=== PATIENT | male | born 1950 | race Caucasian/White ===

== ENCOUNTER 2018-05-25 06:17 | Day surgery (SDC) | payer MEDICARE ==
[2018-05-25] VITALS (8 sets, daily range): BP systolic 115–122; BP diastolic 60–71
[~2018-05-25] VITALS: Ht 182.9 cm; Wt 82.0 kg
[~2018-05-25 06:17] MED LIST: BACDS PO; CLINDAmcin 900mg/NS 50ml IVPB 50 ML IV ONE; HYDR-4353 PO; THYR120T14 PO; famotidine 20mg tablet PO ONE; ringers solution, lacted 1,000 ML IV SCH
[2018-05-25] MEDS ORDERED: ROPIVAcaine 0.5% (5mg/ml) 30ml vial ONE (07:47)
[2018-05-25 07:58] LABS: BASOPHILS % (AUTO) 0.2 % (0-1); EOSINOPHILS # (AUTO) 0.1 X10'3 (0-0.9); EOSINOPHILS % (AUTO) 1.5 % (0-6); HEMATOCRIT 42.7 % (42.0-52.0); HEMOGLOBIN 14.7 g/dl (14.0-17.9); LYMPHOCYTES # (AUTO) 0.4 X10'3 (1.1-4.8); LYMPHOCYTES % (AUTO) 5.4 % (21-51); MEAN CORPUSCULAR HEMOGLOBIN 28.8 PG (27.0-31.0); MEAN CORPUSCULAR HGB CONC 34.3 g/dL (33.0-36.5); MEAN CORPUSCULAR VOLUME 83.9 FL (78-98); MEAN PLATELET VOLUME 9.5 FL (7.4-10.4); MONOCYTES # (AUTO) 0.6 X10'3 (0-0.9); MONOCYTES % (AUTO) 8.4 % (2-12); NEUTROPHILS # (AUTO) 6.4 X10'3 (1.8-7.7); NEUTROPHILS % (AUTO) 84.5 % (42-75); PLATELET COUNT 155 X10'3 (140-440); RED BLOOD COUNT 5.09 X10'6 (4.70-6.10); RED CELL DISTRIBUTION WIDTH 13.5 % (11.5-14.5); WHITE BLOOD COUNT 7.5 X10'3 (4.5-11.0)
[2018-05-25 08:07] LABS: ALANINE AMINOTRANSFERASE 16 U/L (12-78); ALBUMIN 3.9 G/DL (3.4-5.0); ALBUMIN/GLOBULIN RATIO 1.1 (1.1-1.5); ALKALINE PHOSPHATASE 105 IU/L (46-116); ANION GAP 20 (8-16); ASPARTATE AMINO TRANSFERASE 20 U/L (10-37); BILIRUBIN,TOTAL 0.6 MG/DL (0.1-1.0); BLOOD UREA NITROGEN 29 MG/DL (7-18); BUN/CREATININE RATIO 23.8 (5.4-32.0); CALCIUM 9.7 MG/DL (8.5-10.1); CHLORIDE 91 MMOL/L (99-107); CREATININE 1.22 MG/DL (0.60-1.10); GLUCOSE 96 MG/DL (70-104); POTASSIUM 4.9 MMOL/L (3.5-5.1); SODIUM 128 MMOL/L (135-145); TOTAL CARBON DIOXIDE 17.2 MMOL/L (24-32); TOTAL PROTEIN 7.6 G/DL (6.4-8.2); eGFR 59 ML/MIN
[2018-05-25] MEDS ORDERED: TRAM50TA2 PO ×4 (08:15→17:58)
--- NOTE | 2018-05-25 11:07 | NUR ---
SURGERY DELAYED R/T OR AVAILABILITY. Q1 CHECKS HAVE FOUND PATIENT TO APPEAR TO BE SLEEPING, NO SIGNS OF DISTRESS OR DISCOMFORT. GLORIA AT BEDSIDE FOR PATIENT SUPPORT. UNABLE TO OBTAIN UA DUE TO PATIENTS INABILITY TO VOID AT THIS TIME
[2018-05-25] MEDS ORDERED: traMADol 50MG tablet PO ONE (11:20)
--- NOTE | 2018-05-25 11:40 | NUR ---
UA OBTAINED PRIOR TO SURGERY
[2018-05-25] MEDS ORDERED: fentaNYL/PF 50MCG/1 ML 2ML syringe ONE (11:55)
[2018-05-25] MEDS ORDERED: MIDAZolam 5mg/5ml vial ONE (12:05)
[2018-05-25] MEDS ORDERED: LIDOcaine 1%/PF 5ML 10 MG/ML VIAL ONE (12:12)
[2018-05-25] MEDS ORDERED: propofol inj 20 ML IV ONE (12:12)
[2018-05-25] MEDS ORDERED: ringers solution, lacted 1,000 ML IV SCH (12:37)
[2018-05-25] MEDS ORDERED: ondansetron/PF 4mg/2ml inj IV PRN (12:40)
[2018-05-25] MEDS ORDERED: hydrALAZINE 20mg/ml inj. IV PRN (12:40)
[2018-05-25] MEDS ORDERED: fentaNYL/PF 50MCG/1 ML 2ML syringe IV PRN ×2 (12:40)
[2018-05-25] MEDS ORDERED: labetalol 20mg/4ml (5mg/ml) syringe IV PRN (12:40)
[2018-05-25] MEDS ORDERED: morphine 4 MG/ML inj SYRINge IV PRN ×2 (12:40)
--- NOTE | 2018-05-25 13:25 | NUR ---
Received from OR via bed, accompanied by Anesthesiologist. Report received. Initial physical assessment done and recorded.
--- NOTE | 2018-05-25 14:25 | NUR ---
Discharge criteria met, report to receiving floor. Transferred to room in stable condition.
--- NOTE | 2018-05-25 18:47 | NUR ---
Discharge criteria relaye to charge nurse Morena BALBUENA. Order is under misc. nursing order as well. Blanca kitty requested to walk pt. and shower/sitz at this moment. Discharge paperwork and medications with pt. in room. 435 found in bladder during bladder scan. Charge nurse aware/report given.
--- NOTE | 2018-05-25 20:20 | NUR ---
smiley catheter inserted per Dr Ballesteros orders, indwelling, will be removed by MD in a few days. Patient to make appointment. Teaching done r/t smiley care, leg bag, sitz bath, dressings, and f/u w/ dr Ballesteros
--- NOTE | 2018-05-25 20:20 | NUR ---
discharged per W/C to front doors and assisted into private care. Patent alert, walking w/o assistance, in no pain at this time, smiley catheter patient draining clear urine. Seat belt secured and door securely closed. a stable post op day. Had good toleration of sitz shower. Iv removed from R forearm w/ cannula intact. Site dressed w/ sterile gauze and pressure. DC paperwork given after signing of receipt of materials. Alert and all questions answered r/t post op care.
== END 2018-05-25 20:20 | disposition home or self-care (01) ==
LOC: PAS 06:17 → SUR 3N 14:31 → PAS 20:20
PROVIDERS: ATTEND Surgery
DX: K62.0 Anal polyp (principal); K61.0 Anal abscess; K64.2 Third degree hemorrhoids; K64.4 Residual hemorrhoidal skin tags; E11.22 Type 2 diabetes mellitus with diabetic chronic kidney disease; N18.3 Chronic kidney disease, stage 3 (moderate); J44.9 Chronic obstructive pulmonary disease, unspecified; Z98.890 Other specified postprocedural states; Z88.0 Allergy status to penicillin; G89.29 Other chronic pain; Z88.8 Allergy status to other drugs, medicaments and biological substances; Z79.899 Other long term (current) drug therapy; M54.9 Dorsalgia, unspecified
CPT/HCPCS: 36415; 46050; 46260; 46922; 80053; 82948; 85025; 87015; 87070; 87075; 87076; 87077; 87102; 87116; 87185; 87186; 87206; 93005; A6224; A6266; A6449; J2001; J2250; J2704; J3010; 88304; 88305; 88331; A7000; G0378; J2795; J3490; J7120

== ENCOUNTER 2022-03-02 09:48 | Emergency (ER) | payer OTHER, MEDICARE ==
[~2022-03-02] VITALS: Ht 182.9 cm; Wt 95.0 kg
[~2022-03-02 09:48] MED LIST changes: -BACDS PO; -CLINDAmcin 900mg/NS 50ml IVPB 50 ML IV ONE; -HYDR-4353 PO; +SULF1TAB45 PO; -famotidine 20mg tablet PO ONE; -ringers solution, lacted 1,000 ML IV SCH
[2022-03-02 09:53] VITALS: BP 142/85
[2022-03-02] MEDS ORDERED: ketorolac trometh inj. 60 MG/2 ML VIAL IM ONE (11:00)
[2022-03-02] MEDS ORDERED: oxybutynin 5mg tablet PO ONE (11:00)
[2022-03-02] MEDS ORDERED: OXYB10TA4 PO (11:08)
[2022-03-02] MEDS ORDERED: ketorolac trometh. 30mg/ml inj. IM ONE (11:10)
== END 2022-03-02 11:35 | disposition home or self-care (01) ==
LOC: ER 09:48
DX: R35.89 Other polyuria (principal); N32.89 Other specified disorders of bladder; Z88.0 Allergy status to penicillin; Z88.6 Allergy status to analgesic agent; Z88.8 Allergy status to other drugs, medicaments and biological substances; Z79.2 Long term (current) use of antibiotics; Z79.899 Other long term (current) drug therapy
CPT/HCPCS: 96372; 99283; J1885

== ENCOUNTER 2022-03-08 06:47 | Emergency (ER) | payer OTHER, MEDICARE ==
[~2022-03-08] VITALS: Ht 182.9 cm; Wt 88.0 kg
[~2022-03-08 06:47] MED LIST changes: +OXYB10TA4 PO
[2022-03-08] MEDS ORDERED: LIDOcaine 2% 10ml TOPICAL JELLY (Urojet) MM ONE (08:00)
[2022-03-08 08:25] LABS: CLARITY,URINE CLOUDY (Clear); COLOR,URINE STRAW (Yellow); GLUCOSE, URINE NEGATIVE (Neg); KETONES,URINE NEGATIVE (Neg); LEUKOCYTE ESTERASE ,URINE LARGE (Neg); NITRITES, URINE POSITIVE (Neg); OCCULT BLOOD,URINE MODERATE (Neg); PH,URINE 7.5 (4.8-8.0); PROTEIN,URINE NEGATIVE (Neg); UROBILINOGEN,URINE 0.2 E.U/dL (0.2-1.0)
[2022-03-08 08:26] LABS: UA COLLECTION TYPE URINAL
[2022-03-08 08:42] LABS: BACTERIA,URINE 4+ /HPF (Neg); MUCUS STRANDS NONE SEEN /LPF (Neg); SQUAMOUS EPITHELIAL CELL,UR NONE SEEN /LPF (FEW); WBC CLUMPS,URINE MODERATE /HPF (NEGATIVE); WBC,URINE 50-100 /HPF (0-4)
[2022-03-08] MEDS ORDERED: sulfamethoxazole/trimethoprim DS (800/160mg) tablet PO ONE (09:15)
[2022-03-08] MEDS ORDERED: SULF1TAB49 PO (09:18)
[2022-03-08 10:04] VITALS: BP 152/76
== END 2022-03-08 10:22 | disposition home or self-care (01) ==
LOC: ER 06:48
DX: R33.9 Retention of urine, unspecified (principal); N39.0 Urinary tract infection, site not specified; Z88.0 Allergy status to penicillin; Z88.6 Allergy status to analgesic agent; Z88.5 Allergy status to narcotic agent; Z79.899 Other long term (current) drug therapy
CPT/HCPCS: 51702; 81001; 87077; 87088; 87186; 99284; A4340

== ENCOUNTER 2022-04-04 09:08 | Emergency (ER) | payer OTHER, MEDICARE ==
[~2022-04-04] VITALS: Ht 182.9 cm; Wt 90.9 kg
[2022-04-04 09:14] VITALS: BP 101/71
[2022-04-04] MEDS ORDERED: LIDOcaine 2% 10ml TOPICAL JELLY (Urojet) TP ONE (09:15)
[2022-04-04] MEDS ORDERED: FLO0.4C PO (09:26)
[2022-04-04 10:39] LABS: CLARITY,URINE CLOUDY (Clear); COLOR,URINE YELLOW (Yellow); GLUCOSE, URINE NEGATIVE (Neg); KETONES,URINE NEGATIVE (Neg); LEUKOCYTE ESTERASE ,URINE SMALL (Neg); NITRITES, URINE NEGATIVE (Neg); OCCULT BLOOD,URINE MODERATE (Neg); PH,URINE 5.5 (4.8-8.0); PROTEIN,URINE NEGATIVE (Neg); UROBILINOGEN,URINE 0.2 E.U/dL (0.2-1.0)
[2022-04-04 10:44] LABS: UA COLLECTION TYPE FOLEY CATH
[2022-04-04 10:45] LABS: BACTERIA,URINE FEW /HPF (Neg); HYALINE CASTS 0-3 /LPF (NEGATIVE); MUCUS STRANDS FEW /LPF (Neg); SQUAMOUS EPITHELIAL CELL,UR FEW /LPF (FEW); WBC CLUMPS,URINE MANY /HPF (NEGATIVE)
[2022-04-04 10:46] LABS: RBC,URINE 50-100 /HPF (0-2); WBC,URINE 50-100 /HPF (0-4)
== END 2022-04-04 10:20 | disposition home or self-care (01) ==
LOC: ER 09:08
DX: R33.9 Retention of urine, unspecified (principal); N32.0 Bladder-neck obstruction; Z88.0 Allergy status to penicillin; Z88.5 Allergy status to narcotic agent; Z88.6 Allergy status to analgesic agent; Z88.8 Allergy status to other drugs, medicaments and biological substances
CPT/HCPCS: 51702; 81001; 87077; 87088; 87186; 99284; A4358

== ENCOUNTER 2022-04-07 09:04 | Emergency (ER) | payer OTHER, MEDICARE ==
[~2022-04-07] VITALS: Ht 182.9 cm; Wt 95.0 kg
[~2022-04-07 09:04] MED LIST changes: +FLO0.4C PO
[2022-04-07 09:19] VITALS: BP 165/67
[2022-04-07] MEDS ORDERED: CEPH-585 PO (10:33)
== END 2022-04-07 10:51 | disposition home or self-care (01) ==
LOC: ER 09:09
DX: T83.9XXA Unspecified complication of genitourinary prosthetic device, implant and graft, initial encounter (principal); N39.0 Urinary tract infection, site not specified; Z88.6 Allergy status to analgesic agent; Z79.899 Other long term (current) drug therapy; Z88.0 Allergy status to penicillin
CPT/HCPCS: 99284